=== PATIENT | male | born 1955 | race Caucasian/White ===

== ENCOUNTER 2016-09-07 12:42 | Emergency (ER) | payer OTHER ==
[~2016-09-07] VITALS: Ht 172.7 cm; Wt 106.8 kg
[2016-09-07 12:50] VITALS: BP 138/81; PULSE 103; RESP 19; O2SAT 90
--- NOTE | 2016-09-07 12:55 | ED.REPORT ---
HPI-Dyspnea / Wheezing Date of Service Sep 07, 2016 ED Provider: Amando Nunez DO This patient is a 61 year old male with a history of bronchitis presenting to the ED complaining of worsening SOB for 3 days and associated sore throat. Pt. was in urgent care earlier. He states that he hasn't been sleeping much because he has SOB every time he lays down. He felt feverish few days ago and admits to chills, cough with sputum, chest tightness, and wheezing but denies vomiting, diarrhea, leg edema, or intermittent chest pain. Cough started this afternoon. Denies being around anyone who's sick. Denies frequent visits to dr's offices and taking regular medications. Denies heart and lung diseases in family. Pt. is a smoker of 45 years and denies having trouble with lungs and heart. An echocardiogram was performed by Dr. Sharma which was normal. Nursing Notes Stated Complaint: COLD SYMPTOMS Chief Complaint: Respiratory Complaints Nursing Notes Reviewed: Yes Allergies: Coded Allergies: No Known Allergies (Unverified , 09/07/16) Scheduled Azithromycin (Zithromax) 250 Mg Tablet 250 MG PO DAILY Prednisone (PredniSONE) 50 Mg Tablet 50 MG PO DAILY General Time Seen by MD: 12:54 Chief Complaint Shortness of breath Started 3 days ago Hx Obtained From: Patient Arrived By: Walk-in Sudden in Onset?: No Onset Occurred: 3 days ago Symptom Duration: Since onset Severity: Current: No pain currently Severity: Maximum: No pain Recent Healthcare: No recent doctor visit, No recent hospitalization Similar Sx Previous: No Past Medical History Past Medical History Bronchitis Past Surgical History None reported Smoking History Current Every Day Smoker Social History Other Social History: Local resident Ambulatory Status Independent Review of Systems Review of Systems Note: Wheezing Hasn't been sleeping much Basic Review of Systems Eyes: Vision NL, No discharge GI: No abdominal pain Constitutional: Reports: Chills, Fever ([place] feverish) Ears / Nose / Throat: Reports: Sore throat (scratchy, itchy) Respiratory: Reports: Pleuritic pain (tightness), Prod cough, yellow (Started this afternoon), Shortness of breath Cardiovascular: Denies: Chest pain, Edema Complete sys rev & neg: except as marked. GI: Denies: Diarrhea, Vomiting Physical Exam Initial Vital Signs Initial VS: Reviewed Head / Eyes: Atraumatic, Normocephalic, PERRL Abdomen / GI: Soft, Non-tender Lymphatic: No lymphadenopathy Extremities: Vascular intact, Neuro intact Neurologic: Alert, Oriented, Nonfocal Psychiatric: Mood/affect normal, Behavior normal, Normal thought content General/Constitutional: Awake, Alert, Well developed Neck: Atraumatic, Supple, No meningismus, Full range of motion Respiratory / Chest: Atraumatic, No respiratory distress, No retractions Decreased breath sounds Diffuse expiratory wheezing Cardiovascular: Regular rhythm, Heart sounds NL, No gallop, No murmurs, No rubs , Cap refill not delayed Heart Rate / Rhythm: Positive: Tachycardia ENT: Atraumatic, Airway patent, Mucous membranes moist, Pharynx NL Lower Extremity / Pelvis / MS: No edema Skin: Atraumatic, Color NL, No rash, Warm, Dry Interpretation & Diagnostics Interpretation & Diagnostics: NEGATIVE FOR INFLUENZA TYPE A AND B Lab Results Interpretation Test 09/07/16 14:17 09/07/16 14:56 09/07/16 15:08 White Blood Count 3.8th/mm3 (3.8-10.1) Red Blood Count 4.66mil/mm3 (4.40-5.80) Hemoglobin 14.7g/dL (13.8-17.2) Hematocrit 42.9% (41.0-50.0) Mean Corpuscular Volume 92.1fL (81-100) Mean Corpuscular Hemoglobin 31.5pg (27.0-35.0) Mean Corpuscular Hemoglobin Concent 34.3% (32.0-37.0) Red Cell Distribution Width 12.9% (12.3-15.4) Platelet Count 159bil/L (150-400) Neutrophils (%) (Auto) 53.1% (40-74) Lymphocytes (%) (Auto) 31.0% (14-46) Monocytes (%) (Auto) 12.4% (4-12) Eosinophils (%) (Auto) 2.9% (0-5) Basophils (%) (Auto) 0.3% (0-3) Sodium Level 135mEq/L (134-144) Potassium Level 3.9mEq/L (3.5-5.2) Chloride Level 94mEq/L (97-108) Carbon Dioxide Level 29mmol/L (18-29) Blood Urea Nitrogen 10mg/dL (8-27) Creatinine 0.66mg/dL (0.76-1.27) Estimat Glomerular Filtration Rate 130mL/min (>59) Glucose Level 141mg/dL (60-99) Calcium Level 8.6mg/dL (8.5-10.1) Total Bilirubin 0.4mg/dL (0.0-1.2) Aspartate Amino Transf (AST/SGOT) 30U/L (0-50) Alanine Aminotransferase (ALT/SGPT) 50U/L (0-44) Alkaline Phosphatase 62U/L (25-160) Troponin T < 0.010ug/L (0.0-0.011) Pro-B-Type Natriuretic Peptide 49.35pg/mL (0-210) Total Protein 6.8g/dL (6.4-8.4) Albumin 3.7g/dL (3.4-5.0) [place] Top Tube Received (Received) Urine Color Yellow (YELLOW) Urine Appearance Clear (CLEAR,HAZY) Urine pH 6.0 (5.0-8.0) Urine Specific [place] 1.025 (1.003-1.035) Urine Protein Negativemg/dL (NEG,TRACE) Urine Glucose (UA) Negativemg/dL (NEGATIVE) Urine Ketones Tracemg/dL (NEGATIVE) Urine Occult Blood Trace (NEGATIVE) Urine Nitrite Negative (NEGATIVE) Urine Bilirubin Negative (NEGATIVE) Urine Urobilinogen Normalmg/dL (NORMAL) Urine Leukocyte Esterase Negative (NEGATIVE) Urine RBC 0-2/hpf (0-2) Urine WBC 0-5/hpf (0-5) Urine Epithelial Cells Occasional/hpf (NONE-MOD) Urine Crystals None seen (NONE SEEN) Urine Bacteria None/hpf (NONE-FEW) Urine Hyaline Casts None/lpf (NONE) Urine Granular Casts None seen (NONE SEEN) Urine Waxy Casts None seen (NONE SEEN) Urine Red Blood Cell Casts None seen (NONE SEEN) Urine White Blood Cell Casts None seen (NONE SEEN) Urine Mucus Present (None Seen) Urine Trichomonas None seen (NONE SEEN) Urine Yeast None (NONE SEEN) Urinalysis Comment None Urine Culture Reflexed Not indicated ECG Interpretation ECG Interpretation: SR rate of 98 Time: 13:23 Interpreted by: ED physician Normal ECG Interpretation: No acute ischemic changes X-Ray Chest Interpretation Chest Xray Interpretation: IMPRESSION: 1. Bilateral calcified granuloma redemonstrated without acute consolidation. Dictated by: Angel Soto M.D. on 09/07/2016 at 13:22 Interpretation / Wet Read by: Interpret - Radiologist Chest Xray Interpretation: IMPRESSION: 1. Lateral view of the chest demonstrates no definite consolidation. Dictated by: Angel Soto M.D. on 09/07/2016 at 14:11 Interpretation / Wet Read by: Interpret - Radiologist Re-Eval/Medical Decision Med Decision/Clinical Course 61-year-old male with no known history of COPD but with symptoms consistent with COPD presents with wheezing, cough productive for yellow sputum and increasing shortness of breath for the past several days. He is hypoxic on room air with an SPO2 around 85%. His chest tightness and wheezing improved after 2 nebulizers here, however he remained hypoxic with his sats dropping to around 88 off of oxygen. I recommended admission due to hypoxia the patient adamantly declines due to having to go home and care for his dog. He cannot find another alternative he says. He is willing to sign out AGAINST MEDICAL ADVICE. He understands this could be dangerous to his health up to and including and he is instructed to return if his symptoms worsen. He does not have a primary care provider so we have set him up with the residency clinic here and he agrees to follow up. We are also discharging him with an albuterol inhaler which she can use for chest tightness and wheezing at home. Patient understands and agrees with this plan. I again emphasized that we strongly recommend he be admitted but he adamantly insists he needs to go home. Source of Hx: Old records Re-Evaluation/Progress : Time of Eval: 15:44 )( Re-Eval Resp / Chest: Mild wheezing Re-Evaluation/Progress Note: Pt. rechecked. Pt. has low oxygen and is now on oxygen so we want to admit. However, denied admission because his dog is in the parking lot. He'll be discharged with a signed consent to denial of admission and medication to take at home. Pt. understands with plan. All questions have been addressed. Counseled Regarding: Diagnosis, Lab results, Need for follow-up, When/why to return to ED Discharge & Departure Impression: Primary Impression: COPD with exacerbation Additional Impression: Hypoxia Ruled Out: Influenza, Pneumonia, Acute coronary syndrome Disposition: AGAINST MEDICAL ADVICE Discharge Condition All VS Reviewed: Yes Condition: Stable Additional Instructions: Thank you for entrusting your care with us today. I believe you have COPD, although you haven't been diagnosed. You'd need to make an appointment with [facility] for further evaluation with the number listed below. Use inhaler every 2 hours as needed and take azithromycin and prednisone as directed. Return to the emergency department if you have worsening shortness of breath or any other new or concerning symptoms. Referrals: Andre Lane MD (PCP) [facility] Scribe Attestation Portions of this note were transcribed by Tabitha Bae. Dr. Mayra Muñiz personally performed the history, physical exam and medical decision- making; I reviewed and confirmed the accuracy of the information in the transcribed note. Signed by: Rafael Kemp, 09/07/2016 and 0319. copies to: Andre Lane MD; [facility] Amando Nunez DO Sep 07, 2016 12:55 Mireya Jacob [Tabitha] Sep 07, 2016 13:26 TORREY BAE Sep 07, 2016 14:40 Portions of this note were transcribed by Tabitha Bae. Dr. Mayra Muñiz personally performed the history, physical exam and medical decision- making; I reviewed and confirmed the accuracy of the information in the transcribed note. Signed by: Rafael Kemp, 09/07/2016 and 3524. copies to: Andre Lane MD; [facility] Amando Nunez DO Sep 07, 2016 12:55 Mireya Jacob [Tabitha] Sep 07, 2016 13:26 TORREY BAE Sep 07, 2016 14:40
--- NOTE | 2016-09-07 13:24 | DRSVH ---
PROCEDURE: X-RAY CHEST ONE VIEW, PORTABLE ([id number]) INDICATIONS: dyspnea TECHNIQUE: One view of the chest was acquired. COMPARISON: [facility], CHEST 2VW, 11/30/2014, 15:46. FINDINGS: Surgical changes and devices: None. Lungs and pleura: No pleural effusions or pneumothorax. There are multiple bilateral dense nodules redemonstrated consistent with calcified granuloma. No focal consolidation. Mediastinum: Mediastinal contours appear unchanged. Heart size is normal. Bones and chest wall: No suspicious bony lesions. Overlying soft tissues appear unremarkable. IMPRESSION: 1. Bilateral calcified granuloma redemonstrated without acute consolidation. Dictated by: Angel Soto M.D. on 09/07/2016 at 13:22 Approved by: Angel Soto M.D. on 09/07/2016 at 13:22
[2016-09-07] MEDS ORDERED: Albuterol 2.5 mg/3 mL Inhalation Solution NEB ONE (13:45)
[2016-09-07] MEDS ORDERED: MethylprednisoLONE Sodium Succinate 62.5 mg/mL 2 mL Inj IVPUSH ONE (13:45)
[2016-09-07] MEDS ORDERED: Albuterol-Ipratropium 3 mL Inhalation Solution NEB ONE (13:45)
--- NOTE | 2016-09-07 14:12 | DRSVH ---
PROCEDURE: X-RAY CHEST ONE VIEW ([id number]) INDICATIONS: shortness of breath, fever TECHNIQUE: One view of the chest was acquired. COMPARISON: [facility], CR, XR CHEST 1VW (PORTABLE), 09/07/2016, 12:56. CECILIA Alvarenga, CHEST 2VW, 11/30/2014, 15:46. FINDINGS: Single lateral view of the chest demonstrates no definite focal consolidation. Multiple small calcif ied granulomata are again noted. IMPRESSION: 1. Lateral view of the chest demonstrates no definite consolidation. Dictated by: Angel Soto M.D. on 09/07/2016 at 14:11 Approved by: Angel Soto M.D. on 09/07/2016 at 14:11
[2016-09-07 14:21] VITALS: PULSE 100; RESP 16; O2SAT 91
[2016-09-07 15:01] LABS: BASOPHILS % (AUTO) 0.3 % (0-3); EOSINOPHILS % (AUTO) 2.9 % (0-5); MONOCYTES % (AUTO) 12.4 % (4-12); Mean Corpuscular Hemoglobin 31.5 pg (27.0-35.0); Mean Corpuscular Volume 92.1 fL (81-100); NEUTROPHILS % (AUTO) 53.1 % (40-74); Platelet Count 159 bil/L (150-400)
[2016-09-07 15:29] LABS: TROPONIN T < 0.010 ug/L (0.0-0.011)
[2016-09-07 15:30] LABS: APPEARANCE,URINE CLEAR (CLEAR,HAZY); COLOR,URINE YELLOW (YELLOW); OCCULT BLOOD,URINE TRACE (NEGATIVE); UROBILINOGEN,URINE NORMAL (NORMAL)
[2016-09-07 15:40] VITALS: BP 126/73; PULSE 106; RESP 25; O2SAT 88
[2016-09-07 15:42] VITALS: PULSE 104; RESP 22; O2SAT 93
[2016-09-07] MEDS ORDERED: Albuterol HFA 60 Puff 8 Gm Inhaler INHALATION ONE (15:50)
[2016-09-07] MEDS ORDERED: predniSONE 20 mg Tablet PO ONE (15:50)
[2016-09-07] MEDS ORDERED: PRED50TA PO (16:20)
[2016-09-07] MEDS ORDERED: ZIT250 PO (16:20)
[2016-09-07 16:34] VITALS: BP 139/72; PULSE 102; RESP 23; O2SAT 93
== END 2016-09-07 16:41 | disposition left against medical advice (07) ==
LOC: SED 12:42
DX: J44.1 Chronic obstructive pulmonary disease with (acute) exacerbation (principal); R09.02 Hypoxemia; F17.210 Nicotine dependence, cigarettes, uncomplicated
CPT/HCPCS: 71010; 80053; 81000; 83880; 84484; 85025; 87804; 93005; 94640; 94664; 96374; 99285; J2930; J7613; J7620